=== PATIENT | female | born 1960 | race Caucasian/White ===

== ENCOUNTER 2018-12-07 08:00 | Outpatient (CLI) | payer OTHER ==
[2011-12-26 12:59] VITALS: BMI 42.5
== END 2018-12-07 09:00 | disposition home or self-care (01) ==
LOC: D.MAMMO 08:00
DX: R92.8 Other abnormal and inconclusive findings on diagnostic imaging of breast (principal)

== ENCOUNTER → 2019-12-08 21:56 | Outpatient (CLI) | payer BC ==
[2011-12-26 12:59] VITALS: BMI 42.5
== END | disposition home or self-care (01) ==
LOC: D.MAMMO 15:30
PROVIDERS: ATTEND Nurse Practitioner Family
DX: Z12.31 Encounter for screening mammogram for malignant neoplasm of breast (principal)

== ENCOUNTER → 2020-02-01 18:36 | Outpatient (CLI) | payer BC ==
[2011-12-26 12:59] VITALS: BMI 42.5
== END | disposition home or self-care (01) ==
LOC: D.MAMMO 11:00
PROVIDERS: ATTEND Nurse Practitioner Family
DX: R92.8 Other abnormal and inconclusive findings on diagnostic imaging of breast (principal); Z79.890 Hormone replacement therapy